=== PATIENT | female | born 1955 | race African-American/Black ===

== ENCOUNTER 2017-03-28 03:12 | Inpatient (IN) ==
--- NOTE | 2017-03-28 04:36 | Emergency Department Note ---
Arrival - Arrival Chief Complaint: Shortness of Breath ED Nursing Triage Note: pt was transfered from [facility] with resp distress. pt has hx chf, copd, sarcoidosis. pt received lasix, solumedrol, hydralazine and labetolol police captain. Mode of Arrival: Stretcher Time Seen by Provider: 03/28/17 03:49 - History of Present Illness HPI Narrative: This is a 61-year-old female of descent with history of hypertension who has been taken off her antihypertensive medications several months ago and who was transferred from [place] because of cardiomegaly and pulmonary vascular congestion seen on chest x-ray with a BNP of over 2000 with dyspnea on exertion orthopnea and worsening shortness of breath. The patient has a history of sarcoidosis but does not have a history of congestive heart failure. The case was discussed with the hospitalist who agreed to admit the patient to the hospital for workup of new onset of congestive heart failure. Date of Last Menstrual Period: hysterectomy Medical,Surgical,& Family Hx - Medical History Cardio: History of: CHF, Hypertension Psychological: History of: Bipolar Disorder Endocrine: History of: Thyroid Disorder Respiratory: History of: COPD, Respiratory Problems (sarcoidosis) - Surgical History Reproductive Surgeries: Surgical HX of;: Hysterectomy - Social History Smoking Status: Former smoker Frequency of Alcohol Use: None Type of Drug Use: None Exam Vital Signs: Vital Signs Temperature 96.7 F L 03/28/17 03:12 Pulse Rate 100 H 03/28/17 03:12 Respiratory Rate 17 03/28/17 03:12 Blood Pressure 138/118 03/28/17 03:12 O2 Sat by Pulse Oximetry 100 03/28/17 03:12 Course Course Narrative: The patient has a history of hypertension who has been taken off her antihypertensive medications several months ago and who was transferred from [place] because of cardiomegaly and pulmonary vascular congestion seen on chest x-ray with a BNP of over 2000 with dyspnea on exertion orthopnea and worsening shortness of breath. The patient has a history of sarcoidosis but does not have a history of congestive heart failure. The case was discussed with the hospitalist who agreed to admit the patient to the hospital for workup of new onset of congestive heart failure. Disposition Clinical Impression: Congestive heart failure, Uncontrolled hypertension Disposition: Still a Patient Additional Instructions: The patient has a history of hypertension who has been taken off her antihypertensive medications several months ago and who was transferred from [place] because of cardiomegaly and pulmonary vascular congestion seen on chest x-ray with a BNP of over 2000 with dyspnea on exertion orthopnea and worsening shortness of breath. The patient has a history of sarcoidosis but does not have a history of congestive heart failure. The case was discussed with the hospitalist who agreed to admit the patient to the hospital for workup of new onset of congestive heart failure.
--- NOTE | 2017-03-28 06:57 | EKG Report ---
Stationary ECG Study [facility] ER Test Date: 03/28/2017 3:25:34 AM Pat Name: TANYA WARD Department: Room: Gender: F Patient Clerical Assistant: PRISCILLA : 1955 Requested by: Mohamud Traylor Order Number: [id number] Reading MD: CLARI BUSTAMANTE Intervals [place] Rate: 94 P: 69 MS: 151 QRS: 0 QRSD: 96 T: 140 QT: 382 QTc: 434 Interpretive Statements SINUS RHYTHM WITH OCCASIONAL VENTRICULAR PREMATURE COMPLEXES POSSIBLE RIGHT ATRIAL ENLARGEMENT MODERATE T-WAVE ABNORMALITY, CONSIDER LATERAL ISCHEMIA Electronically Signed On 03-28-17 16:01:48 CDT by CLARI BUSTAMANTE [email or web address]
--- NOTE | 2017-03-28 08:09 | Hospitalist History & Physical ---
<Cielo Torres - Last Filed: 03/28/17 09:07> Assessment and Plan (1) Sarcoidosis Status: Acute Assessment and plan: Admit as inpatient. Review home meds. Stat CXR. Supplemental O2. breathing treatments. Current Visit: Yes (2) Congestive heart failure Status: Acute Assessment and plan: Telemetry bed. BNP pending. Strict I&Os. Daily weights. IV lasix. Echo pending. Consult cardiology. Current Visit: Yes (3) Uncontrolled hypertension Status: Acute Assessment and plan: Prn iv meds. Continue to monitor. Current Visit: Yes History of Present Illness Chief complaint: shortness of breath History of present illness: Ms. Cisneros is a 61 year old black female with a history of htn, thyroid disorder , chf, sarcoidosis, and hyperlipidemia that presented to the ED via EMS as a transfer from [facility] for further evaluation of shortness of breath. Pt. states that the shortness of breath started about 2 weeks ago but worsened on Wednesday. Pt. states she was seen in the ED in [place] on Wednesday, received a couple of breathing treatments and was released home. She initially felt better but on yesterday it progressively worsened. She went to [facility] today and was transferred over for a higher level of care. Pt. reports a subjective fever over the last couple of weeks, chills, and cough that produces yellow tinged sputum. She also confirms nausea and vomiting. She denies any chest pain , abdominal pain, or any other complaints at this time. Pt. states she is followed by Dr. Rivera in [place] for her sarcoidosis and that her PCP recently retired. She states there have been changes to her medications lately but she has not found a new PCP. Labs from the outside facility have been reviewed. New labs from our facility are pending. Pt's case has been discussed with Dr. Madsen and the patient will be admitted to the hospitalist service for further evaluation and treatment. Home meds have not been received or reconciled at this time. Allergies Allergy/AdvReac Type Severity Reaction Status Date / Time morphine Allergy ITCHING Verified 03/28/17 06:04 Medical,Surgical,& Family Hx - Medical History Cardio: History of: CHF, Hypertension Psychological: History of: Bipolar Disorder Endocrine: History of: Thyroid Disorder Respiratory: History of: COPD, Respiratory Problems (sarcoidosis) - Surgical History Reproductive Surgeries: Surgical HX of;: Hysterectomy - Family History Family History: Reports;: Family Cancer - Social History Smoking Status: Former smoker Frequency of Alcohol Use: None Type of Drug Use: None Marital Status: Single Lives With:: Alone Functional capacity: uses cane/walker 12 point system: reviewed and no additional remarkable complaints except as stated - Constitutional Constitutional: Present: chills, fever(s), weakness. Absent: night sweats - EENT Eyes: Present: loss of vision Ears: Absent: decreased hearing Nose, mouth and throat: Absent: headache(s) - Cardiovascular Cardiovascular: Present: dyspnea on exertion, edema. Absent: chest pain at rest - Respiratory Respiratory: Present: cough (productive), dyspnea - Gastrointestinal Gastrointestinal: Absent: abdominal pain, nausea, vomiting - Genitourinary Genitourinary: Absent: urinary frequency - Musculoskeletal Musculoskeletal: Absent: back pain - Neurological Neurological: Absent: confusion, dizziness - Psychiatric Psychiatric: Absent: confusion - Endocrine Endocrine: Present: heat intolerance - Hematologic/Lymphatic Hematologic/Lymphatic: Absent: easy bleeding Exam - Constitutional Vitals: Period Temp Pulse Resp BP Sys/Garza Pulse Ox Last 24 Hr 96.7 F-96.7 F 100-100 17-17 138-138/118-118 100 General appearance: mild distress, over weight - Head Head exam: Present: normal inspection, normocephalic - Eye Eye exam: Present: EOMI Pupils: Present: BLADIMIR - Neck Neck exam: Present: normal inspection - Respiratory Respiratory exam: Present: clear to auscultation bilaterally. Absent: wheezes - Cardiovascular Cardiovascular exam: Present: tachycardia - GI/Abdominal GI/Abdominal exam: Present: normal bowel sounds, soft. Absent: tenderness - Extremities Exam Extremities exam: Present: normal capillary refill, full ROM, edema - Neurological Exam Neurological exam: Present: alert, oriented X3 - Psychiatric Psychiatric exam: Present: normal affect, normal mood - Skin Skin exam: Present: normal color, warm, dry Results - Labs Labs: Labs from the outside facility have been reviewed. Other labs available in the external facility record under reports. WBC 7.89 Hemoglobin 14.9 Hematocrit 43.9 Na 144 K 3.7 Chl 103 CO2 29 Bun 12 Creatinine 1 Lactic acid 1.6 - EKG EKG results: interpreted by JALEN <Isaac Madsen - Last Filed: 03/28/17 16:46> History of Present Illness History of present illness: Patient seen and examined independently of MENTAL HEALTH ASSISTANT Torres, agree with history, assessment and plan as documented. 61 y/o AAF with sarcoidosis and chf admitted with CHF exacerbation. She reports currently not having a pcp. She was previously followed by a sewer digger in [place] but has not been there in a while. She is followed by a Dr. Rivera in [place] for cataracts and possible glaucoma. She reports being taken off her blood pressure medications and lasix. She does not believe that this was due to her blood pressure being low. She will be admitted to the telemetry floor. Started on IV lasix. Obtain echo. Start procardia. Will start beta ken and ethan inhibitor before discharge. Exam - Constitutional Vitals: Period Temp Pulse Resp BP Sys/Garza Pulse Ox Last 24 Hr 96.7 F-99.1 F 55-113 17-20 138-188/95-118 95-100 Results - Labs CBC & BMP: 03/28/17 09:57 03/28/17 09:57
[2017-03-28] MEDS ORDERED: LABETALOL 20 MG/4 ML SYRINGE IV STA (09:21)
[2017-03-28] MEDS ORDERED: ONDANSETRON 4 MG/2 ML VIAL IV PRN (09:29)
--- NOTE | 2017-03-28 10:10 | XRay Report ---
Portable chest March 28, 2017 at 0924 hours Indication: Shortness of breath Comparison: Same date at 0123 hours Findings: Cardiomediastinal contours are stable with underlying cardiomegaly and again underlying interstitial edema pattern. Bilateral pleural effusions are likely unchanged in the lateral allowing for difference in technique and exclusion of the bilateral costophrenic sulci. Visualized upper abdomen is grossly unremarkable. Impression: Essentially no change in the appearance the chest with underlying interstitial edema pattern and bilateral pleural effusions PROCEDURE INTERPRETED AT [facility] DEPARTMENT OF RADIOLOGY Final Report Signed by: Ajit Mccarthy
[2017-03-28 10:11] LABS: Basophils % 0.2 % (0.0-0.8); Hematocrit 35.3 VOL% (35.7-47.0); Immature Granulocytes % 0.6 %; Immature Granulocytes Absolute 0.03 #; Lymphocytes # 1.1 10*3/uL (1.4-4.0); Lymphocytes % 22.5 % (21.3-54.2); Mean Corpuscular Hemoglobin 28 PG (27-34); Mean Corpuscular Volume 82.3 FL (87-102); Mean Platelet Volume 11.1 FL (9.6-12.0); Monocytes # 0.1 10*3/uL (0.11-0.8); Monocytes % 1.1 % (1.7-12.7); Neutrophils # 3.6 10*3/uL (1.4-7.4); Neutrophils % 75.6 % (38.7-73.9); Platelet Count 426 T/CUMM (130-400); Red Blood Count 4.29 MC/CUMM (3.8-5.5); Red Cell Distribution Width 14.6 % (9.3-17.3); White Blood Count 4.8 T/CUMM (4-12)
[2017-03-28 10:43] LABS: Calcium 9.2 MG/DL (8.5-10.1); Osmolality,Calculated 285.3 MOS/KG (273-304)
[2017-03-28 10:52] LABS: Magnesium 2.2 MG/DL (1.8-2.4); Risk Ratio 3.9; Thyroid Stimulating Hormone 0.426 uIU/ml (0.358-3.74); VLDL CHOLESTEROL 13.2 MG/DL
[2017-03-28] MEDS: ALBUTEROL/IPRATROPIUM 3 ML NEB RESP TX SCH ×4 (11:15→22:50)
[2017-03-28] MEDS ORDERED: CARVEDILOL 6.25 MG TABLET PO SCH (13:00)
--- NOTE | 2017-03-28 13:03 | ECHO Report ---
Fior Cisneros Exam Date: 03/28/2017 11:21 Referring Physician: Technologist: Rachel Prasad Age: 61 Ht (in): 68 Wt (lb): 240 Gender: F Exam Location: [facility] Echo Indications: SOB, HTN, sarcoid, CHF exacerbation BP: 159 / 101 HR: 100 Rhythm: Sinus Technical Quality: Technically difficult study IMPRESSIONS Technically difficult study. EF 40-45 %. Global hypokinesis. Grade II/IV diastolic dysfunction, moderately elevated filling pressures. Normal right ventricular size and systolic function. The right atrium is mildly enlarged. The left atrium is mildly enlarged. Mildly thickened mitral valve. Trace mitral valve regurgitation. Aortic valve sclerosis. No aortic valve regurgitation. [id number]-igbeiasf tricuspid valve regurgitation. PAP 40-45 mmHG. Pulmonic valve not well visualized. No pericardial effusion. Normal aorta. MEASUREMENTS (Male / Female) Normal Values 2D ECHO LV Diastolic Diameter PLAX 4.3 cm 4.2 - 5.9 / 3.9 - 5.3 cm LV Systolic Diameter PLAX 3.8 cm LV Fractional Shortening PLAX 11.5 % IVS Diastolic Thickness 1.7 cm 0.6 - 1.0 / 0.6 - 0.9 cm LVPW Diastolic Thickness 1.6 cm 0.6 - 1.0 / 0.6 - 0.9 cm Aortic Root Diameter 3.0 cm LA Systolic Diameter LX 4.2 cm 3.0 - 4.0 / 2.7 - 3.8 cm FINDINGS Left Ventricle EF 40-45 %. Global hypokinesis. Grade II/IV diastolic dysfunction, moderately elevated filling pressures. Right Ventricle Normal right ventricular size and systolic function. Right Atrium The right atrium is mildly enlarged. Left Atrium The left atrium is mildly enlarged. Mitral Valve Mildly thickened mitral valve. Trace mitral valve regurgitation. Aortic Valve Aortic valve sclerosis. No aortic valve regurgitation. Tricuspid Valve Tricuspid valve not well visualized. Yiqd-ux-jsyoextk tricuspid valve regurgitation. PAP 40-45 mmHG. Pulmonic Valve Pulmonic valve not well visualized. Pericardium No pericardial effusion. Aorta Normal aorta. Balta Cm (Electronically Signed) Final Date: 28 March 2017 13:02
[2017-03-28] MEDS: PANTOPRAZOLE 40 MG TABLET PO SCH (13:56)
[2017-03-28] MEDS: KETOROLAC 0.5% OPH SOLN 3 ML BOTTLE BOTH EYES SCH ×3 (13:57→21:17)
[2017-03-28] MEDS: DORZOLAMIDE 2% OPH SOLN 10 ML BOTTLE BOTH EYES SCH ×3 (13:57→21:18)
[2017-03-28 14:24] LABS: Apearance,Urine Slightly Hazy (Clear); Bacteria,Urine Occasional /HPF (Few); Bilirubin,Urine Negative (Negative); Blood, Urine Moderate mg/dL (Negative); Glucose,Urine (UA) 50 mg/dL (Negative); Ketones,Urine Negative (Negative); Mucus,Urine Few /LPF (Occasional); Nitrite,Urine Negative (Negative); Protein,Urine >=500 MG/DL; RBC,Urine 56 /HPF (0-4); Squamous Epithelial Cell,Urine Occasional /HPF (0-10); Urine Color Yellow (Yellow); Urine Urobilinogen < 2.0 EU/DL (0.2-1.0); WBC,Urine 9 /HPF (0-6)
[2017-03-28] MEDS: FUROSEMIDE 40 MG/4 ML VIAL IV SCH (15:36)
[2017-03-28] MEDS: rOPINIRole 1 MG TABLET PO SCH (21:19)
[2017-03-28] MEDS: ZALEPLON 5 MG CAPSULE PO SCH (21:19)
[2017-03-28] MEDS: QUEtiapine XR 50 MG TABLET PO SCH (21:20)
[2017-03-28] MEDS: ATORVASTATIN 20 MG TABLET PO SCH (21:22)
[2017-03-29] MEDS: ALBUTEROL/IPRATROPIUM 3 ML NEB RESP TX SCH ×5 (02:31→19:26)
[2017-03-29 05:15] LABS: Basophils % 0.5 % (0.0-0.8); Eosinophils % 0.3 % (0.00-10.9); Hematocrit 35.4 VOL% (35.7-47.0); Immature Granulocytes % 0.3 %; Immature Granulocytes Absolute 0.02 #; Lymphocytes % 45.5 % (21.3-54.2); Mean Corpuscular HGB Conc 33.9 GM/DL (32-36); Mean Corpuscular Hemoglobin 28 PG (27-34); Mean Corpuscular Volume 82.5 FL (87-102); Mean Platelet Volume 11.7 FL (9.6-12.0); Monocytes # 0.5 10*3/uL (0.11-0.8); Monocytes % 8.2 % (1.7-12.7); Neutrophils # 2.9 10*3/uL (1.4-7.4); Neutrophils % 45.2 % (38.7-73.9); Platelet Count 322 T/CUMM (130-400); Red Blood Count 4.29 MC/CUMM (3.8-5.5); Red Cell Distribution Width 14.6 % (9.3-17.3); White Blood Count 6.5 T/CUMM (4-12)
[2017-03-29 05:43] LABS: Calcium 8.7 MG/DL (8.5-10.1); Magnesium 1.9 MG/DL (1.8-2.4); Osmolality,Calculated 282.4 MOS/KG (273-304); Potassium 3.5 MMOL/L (3.5-5.1)
[2017-03-29] MEDS: buPROPion XL 150 MG TABLET PO SCH (08:39)
[2017-03-29] MEDS: FUROSEMIDE 40 MG/4 ML VIAL IV SCH ×2 (08:39→15:47)
[2017-03-29] MEDS: PANTOPRAZOLE 40 MG TABLET PO SCH (08:39)
[2017-03-29] MEDS: methylPREDNISolone 4 MG TABLET PO SCH (08:39)
[2017-03-29] MEDS: KETOROLAC 0.5% OPH SOLN 3 ML BOTTLE BOTH EYES SCH ×4 (08:40→22:08)
[2017-03-29] MEDS: DORZOLAMIDE 2% OPH SOLN 10 ML BOTTLE BOTH EYES SCH ×4 (08:40→22:08)
--- NOTE | 2017-03-29 11:55 | Hospitalist Progress Note ---
Assessment and Plan (1) Congestive heart failure Status: Acute Assessment and plan: EF 40-45 Continue IV lasix Repeat CXR today and in am Patient with sob, most likely related to chf, but given her poor ambulation will order VQ scan to rule out a PE Current Visit: Yes (2) Uncontrolled hypertension Status: Acute Assessment and plan: Continue procardia Will need to be started on beta ken and ethan inhibitor, hopefully before discharge. Monitoring creatinine Current Visit: Yes (3) Sarcoidosis Status: Acute Current Visit: Yes Hospitalist: Subjective Interval history: No acute events overnight. Patient reports that she feels better today, still has some sob. Exam - Constitutional Vitals: Period Temp Pulse Resp BP Sys/Garza Pulse Ox Last 24 Hr 97.0 F-99.1 F 55-113 18-20 139-187/83-106 95-99 General appearance: over weight - Head Head exam: Present: normocephalic, atraumatic - Eye Eye exam: Present: EOMI Pupils: Present: BLADIMIR - ENT ENT exam: Present: normal exam - Neck Neck exam: Present: normal inspection - Respiratory Respiratory exam: Present: clear to auscultation bilaterally. Absent: rhonchi, wheezes - Cardiovascular Cardiovascular exam: Present: regular rate and rhythm - GI/Abdominal GI/Abdominal exam: Present: normal bowel sounds, soft. Absent: tenderness, rebound - Extremities Exam Extremities exam: Present: normal inspection - Back Exam Back exam: Present: normal inspection - Neurological Exam Neurological exam: Present: alert, oriented X3 - Psychiatric Psychiatric exam: Present: normal affect, normal mood - Skin Skin exam: Present: warm, intact Results - Labs CBC & BMP: 03/29/17 04:41 03/29/17 04:41
--- NOTE | 2017-03-29 13:08 | XRay Report ---
Portable chest March 29, 2017 at 1212 hours Indication: Shortness of breath Comparison images performed March 28, 2017 Findings: Cardiomediastinal contours are stable with underlying cardiomegaly. Slight improvement in the overall interstitial edema pattern. Stable bibasilar atelectasis and effusions. No acute osseous abnormalities. Impression: Slight improvement in the interstitial edema pattern with no change in the bibasilar pleural and parenchymal opacities PROCEDURE INTERPRETED AT [facility] DEPARTMENT OF RADIOLOGY Final Report Signed by: Ajit Mccarthy
[2017-03-29] MEDS: BECLOMETHASONE 80 MCG/PUFF INHALER 8.7 GM INH SCH (14:07)
[2017-03-29] MEDS: hydrALAZINE 20 MG/1 ML VIAL IV PRN (17:27)
--- NOTE | 2017-03-29 17:55 | Nuclear Medicine Report ---
Ventilation perfusion scan March 29, 2017 Indication: Difficulty breathing Comparison: No relevant comparisons Correlation with: Chest x-ray performed on same date at 1209 hours. Radiopharmaceutical: 40 mCi of Tc 99m DTPA aerosol for the ventilation study and 5 mCi Tc 99m MAA for the perfusion study. Technique: Following inhalation of the aerosolized radiopharmaceutical, the ventilation study was performed with images of the thorax being obtained in 8 projections. Thereafter, the perfusion study was performed following the injection of radiolabeled MAA particles with images of the thorax again obtained in 8 projections. Findings: Study is of adequate diagnostic value. No matched or mismatched segmental or larger pulmonary perfusion/ventilation defect is demonstrated. IMPRESSION: No perfusion/ventilation disassociation to suggest a pulmonary embolism. Low probability of pulmonary embolism. PROCEDURE INTERPRETED AT [facility] DEPARTMENT OF RADIOLOGY Final Report Signed by: Ajit Mccarthy
[2017-03-29] MEDS: ATORVASTATIN 20 MG TABLET PO SCH (20:32)
[2017-03-29] MEDS: ZALEPLON 5 MG CAPSULE PO SCH (20:32)
[2017-03-29] MEDS: QUEtiapine XR 50 MG TABLET PO SCH (20:32)
[2017-03-29] MEDS: rOPINIRole 1 MG TABLET PO SCH (20:32)
[2017-03-29] MEDS: ACETAMINOPHEN 325 MG TABLET PO PRN (22:21)
[2017-03-30] MEDS: ALBUTEROL/IPRATROPIUM 3 ML NEB RESP TX SCH ×7 (00:02→23:10)
[2017-03-30 05:44] LABS: Basophils # 0.1 10*3/uL (0.0-0.2); Eosinophils # 0.1 10*3/uL (0.0-0.87); Hematocrit 36.9 VOL% (35.7-47.0); Hemoglobin 12.6 GM/DL (12.0-16.0); Immature Granulocytes % 0.3 %; Immature Granulocytes Absolute 0.02 #; Lymphocytes # 3.2 10*3/uL (1.4-4.0); Lymphocytes % 44.6 % (21.3-54.2); Mean Corpuscular HGB Conc 34.1 GM/DL (32-36); Mean Corpuscular Hemoglobin 28 PG (27-34); Mean Platelet Volume 11.3 FL (9.6-12.0); Monocytes # 0.7 10*3/uL (0.11-0.8); Monocytes % 9.4 % (1.7-12.7); Neutrophils # 3.2 10*3/uL (1.4-7.4); Neutrophils % 43.7 % (38.7-73.9); Platelet Count 390 T/CUMM (130-400); Red Cell Distribution Width 14.4 % (9.3-17.3); White Blood Count 7.3 T/CUMM (4-12)
[2017-03-30 06:21] LABS: Calcium 8.8 MG/DL (8.5-10.1); Osmolality,Calculated 281.5 MOS/KG (273-304); Potassium 3.6 MMOL/L (3.5-5.1)
--- NOTE | 2017-03-30 08:06 | XRay Report ---
Portable chest March 30, 2017 0548 hours Indication: Difficulty breathing Comparison images from previous day 1212 hours Findings: Stable cardiomegaly. Slight residual central interstitial prominence. Small bilateral pleural effusions with bibasilar atelectasis, likely demonstrating some degree of improvement. No acute osseous abnormalities. Impression: Continued improvement in the interstitial edema pattern and small bilateral effusions PROCEDURE INTERPRETED AT [facility] DEPARTMENT OF RADIOLOGY Final Report Signed by: Ajit Mccarthy
[2017-03-30] MEDS: PANTOPRAZOLE 40 MG TABLET PO SCH (08:26)
[2017-03-30] MEDS: buPROPion XL 150 MG TABLET PO SCH (08:26)
[2017-03-30] MEDS: methylPREDNISolone 4 MG TABLET PO SCH (08:26)
[2017-03-30] MEDS: KETOROLAC 0.5% OPH SOLN 3 ML BOTTLE BOTH EYES SCH ×4 (08:27→21:53)
[2017-03-30] MEDS: BECLOMETHASONE 80 MCG/PUFF INHALER 8.7 GM INH SCH (08:27)
[2017-03-30] MEDS: DORZOLAMIDE 2% OPH SOLN 10 ML BOTTLE BOTH EYES SCH ×4 (08:27→21:55)
[2017-03-30] MEDS: FUROSEMIDE 40 MG/4 ML VIAL IV SCH ×2 (08:27→15:36)
[2017-03-30] MEDS: hydrALAZINE 20 MG/1 ML VIAL IV PRN (13:10)
--- NOTE | 2017-03-30 15:11 | Hospitalist Progress Note ---
Assessment and Plan (1) Congestive heart failure Status: Acute Assessment and plan: The patient is admitted to the hospital with acute on chronic diastolic congestive heart failure. The patient is improving with intravenous diuresis. I anticipate that she will be ready for discharge home tomorrow or the following day. We will recheck electrolytes and brain natruretic peptide in the morning. Current Visit: Yes Qualifiers: Congestive heart failure type: diastolic Congestive heart failure chronicity: acute on chronic Qualified Code(s): I50.33 - Acute on chronic diastolic (congestive) heart failure (2) Uncontrolled hypertension Status: Acute Current Visit: Yes (3) Sarcoidosis Status: Acute Current Visit: Yes Hospitalist: Subjective Interval history: Mrs. Cisneros has less shortness of breath than when she arrived but is still more short of breath than she is at baseline. Her chest x-ray and symptoms are improving with intravenous diuresis. Echocardiogram reveals ejection fraction of 40%. The patient denies angina or palpitations. Exam - Constitutional Vitals: Period Temp Pulse Resp BP Sys/Garza Pulse Ox Last 24 Hr 97.4 F-98.9 F 67-119 16-20 107-190/56-107 90-99 Exam: Constitutional System: Mild distress. No tremulousness. Head: Normocephalic, atraumatic. Ears, Nose and Throat System: No evidence of Otitis or Mastoiditis. No epistaxis or discharge Eyes System: Pupils equal, round, and reactive. Extraocular muscles intact. Neck: Supple, without adenopathy, No jugular venous distention. No thyromegaly , neck mass, or prior surgery apparent. Respiratory System: Chest few rales in left base to auscultation. Cardiovascular System: Heart with regular rate and rhythm. No murmur. GI System: Abdomen soft, nontender. Normo active bowel sounds present. Musculoskeletal System: limbs with trace pedal edema. Full distal pulses. Neurological System: No discernable sensory deficit. No aphasia Psychiatric System: Conversation is rational Results - Labs CBC & BMP: 03/30/17 04:29 03/30/17 04:29 Lab Results: I have reviewed the past 24 hour labs
[2017-03-30] MEDS: ACETAMINOPHEN 325 MG TABLET PO PRN (18:10)
[2017-03-30] MEDS: rOPINIRole 1 MG TABLET PO SCH (21:55)
[2017-03-30] MEDS: ATORVASTATIN 20 MG TABLET PO SCH (21:55)
[2017-03-30] MEDS: QUEtiapine XR 50 MG TABLET PO SCH (21:55)
[2017-03-30] MEDS: ZALEPLON 5 MG CAPSULE PO SCH (21:55)
[2017-03-31] MEDS: ALBUTEROL/IPRATROPIUM 3 ML NEB RESP TX SCH ×6 (02:09→23:45)
[2017-03-31 06:07] LABS: Calcium 9.2 MG/DL (8.5-10.1); Potassium 3.1 MMOL/L (3.5-5.1)
[2017-03-31] MEDS: buPROPion XL 150 MG TABLET PO SCH (10:24)
[2017-03-31] MEDS: PANTOPRAZOLE 40 MG TABLET PO SCH (10:24)
[2017-03-31] MEDS: methylPREDNISolone 4 MG TABLET PO SCH (10:24)
[2017-03-31] MEDS: BECLOMETHASONE 80 MCG/PUFF INHALER 8.7 GM INH SCH (10:25)
[2017-03-31] MEDS: FUROSEMIDE 40 MG/4 ML VIAL IV SCH (10:25)
[2017-03-31] MEDS: KETOROLAC 0.5% OPH SOLN 3 ML BOTTLE BOTH EYES SCH ×4 (10:25→21:01)
[2017-03-31] MEDS: DORZOLAMIDE 2% OPH SOLN 10 ML BOTTLE BOTH EYES SCH ×4 (10:26→21:00)
--- NOTE | 2017-03-31 13:56 | Hospitalist Progress Note ---
Assessment and Plan (1) Congestive heart failure Status: Acute Assessment and plan: The patient is admitted to the hospital with acute on chronic diastolic congestive heart failure. The patient is improving with intravenous diuresis. The patient will transition to oral diuresis now. We will replete potassium and recheck BMP in the morning. I anticipate discharge home tomorrow. Current Visit: Yes Qualifiers: Congestive heart failure type: diastolic Congestive heart failure chronicity: acute on chronic Qualified Code(s): I50.33 - Acute on chronic diastolic (congestive) heart failure (2) Uncontrolled hypertension Status: Acute Current Visit: Yes (3) Sarcoidosis Status: Acute Current Visit: Yes Hospitalist: Subjective Interval history: The patient is resting comfortably on floor today. Shortness of breath has improved but potassium is low. We will replete potassium today and anticipate discharge home tomorrow. Exam - Constitutional Vitals: Period Temp Pulse Resp BP Sys/Garza Pulse Ox Last 24 Hr 96.8 F-97.9 F 96-111 16-20 125-175/72-86 96-100 Exam: Constitutional System: Mild distress. No tremulousness. Head: Normocephalic, atraumatic. Ears, Nose and Throat System: No evidence of Otitis or Mastoiditis. No epistaxis or discharge Eyes System: Pupils equal, round, and reactive. Extraocular muscles intact. Neck: Supple, without adenopathy, No jugular venous distention. No thyromegaly , neck mass, or prior surgery apparent. Respiratory System: Chest few rales in left base to auscultation. Cardiovascular System: Heart with regular rate and rhythm. No murmur. GI System: Abdomen soft, nontender. Normo active bowel sounds present. Musculoskeletal System: limbs with trace pedal edema. Full distal pulses. Neurological System: No discernable sensory deficit. No aphasia Psychiatric System: Conversation is rational Results - Labs CBC & BMP: 03/30/17 04:29 03/31/17 04:28 Lab Results: I have reviewed the past 24 hour labs
[2017-03-31] MEDS: POTASSIUM CHLORIDE 20 MEQ TABLET PO SCH ×3 (14:35→22:01)
[2017-03-31] MEDS: FUROSEMIDE 40 MG TABLET PO SCH (17:46)
[2017-03-31] MEDS: QUEtiapine XR 50 MG TABLET PO SCH (20:58)
[2017-03-31] MEDS: rOPINIRole 1 MG TABLET PO SCH (20:59)
[2017-03-31] MEDS: ZALEPLON 5 MG CAPSULE PO SCH (20:59)
[2017-03-31] MEDS: ATORVASTATIN 20 MG TABLET PO SCH (20:59)
[2017-04-01] MEDS: POTASSIUM CHLORIDE 20 MEQ TABLET PO SCH ×2 (02:15→05:55)
[2017-04-01] MEDS: ALBUTEROL/IPRATROPIUM 3 ML NEB RESP TX SCH ×2 (04:17→07:48)
[2017-04-01 05:52] LABS: Calcium 8.8 MG/DL (8.5-10.1); Osmolality,Calculated 278.7 MOS/KG (273-304); Potassium 3.5 MMOL/L (3.5-5.1)
[2017-04-01 08:31] VITALS: BP 139/72
[2017-04-01] MEDS: buPROPion XL 150 MG TABLET PO SCH (08:40)
[2017-04-01] MEDS: FUROSEMIDE 40 MG TABLET PO SCH (08:40)
[2017-04-01] MEDS: methylPREDNISolone 4 MG TABLET PO SCH (08:40)
[2017-04-01] MEDS: PANTOPRAZOLE 40 MG TABLET PO SCH (08:41)
[2017-04-01] MEDS: KETOROLAC 0.5% OPH SOLN 3 ML BOTTLE BOTH EYES SCH (08:42)
[2017-04-01] MEDS: DORZOLAMIDE 2% OPH SOLN 10 ML BOTTLE BOTH EYES SCH (08:43)
[2017-04-01] MEDS: BECLOMETHASONE 80 MCG/PUFF INHALER 8.7 GM INH SCH (08:43)
--- NOTE | 2017-04-01 09:30 | Hospitalist Progress Note ---
Assessment and Plan (1) Congestive heart failure Status: Acute Assessment and plan: The patient is admitted to the hospital with acute on chronic diastolic congestive heart failure. The patient is improving with intravenous diuresis. The patient will transition to oral diuresis now. We will replete potassium and recheck BMP in the morning. I anticipate discharge home tomorrow. Current Visit: Yes Qualifiers: Congestive heart failure type: diastolic Congestive heart failure chronicity: acute on chronic Qualified Code(s): I50.33 - Acute on chronic diastolic (congestive) heart failure (2) Uncontrolled hypertension Status: Acute Current Visit: Yes (3) Sarcoidosis Status: Acute Current Visit: Yes Hospitalist: Subjective Interval history: The patient is admitted to the hospital with shortness of breath and pulmonary edema. She was diagnosed with systolic congestive heart failure with echo showing ejection fraction of 40%. The patient had intravenous Lasix diuresis twice daily until volume overload was resolved. We then restarted her Lasix and repleted her electrolytes. The patient is much improved and is now ready for discharge home and follow-up with Dr. Castellano in [place]. On the date of discharge, chest is clear, heart has regular rate and rhythm, and abdomen soft. Patient medications were reconciled upon admission, and again at the time of discharge. The patient was screened for tobacco use and found to be a occasional smoker. The patient was given 4 minutes of tobacco avoidance education. The patient's medical decsion maker is themself, and when asked, they asked to be Full code. Discharge Time was 36 minutes, including final examination, evaluation and planning, education, reconciliation of medications, writing prescriptions, coordinating care with mattress spring encaser, and preparing discharge documentation. Exam - Constitutional Vitals: Period Temp Pulse Resp BP Sys/Garza Pulse Ox Last 24 Hr 96.4 F-99.2 F 86-111 15-20 114-147/52-98 94-98 Results - Labs CBC & BMP: 03/30/17 04:29 04/01/17 04:55
--- NOTE | 2017-04-01 09:34 | Discharge Summary ---
Hospital Course - Hospital Course Hospital Course: The patient is admitted to the hospital with shortness of breath and pulmonary edema. She was diagnosed with acute on chronic diastolic congestive heart failure with echo showing ejection fraction of 40%. The patient had intravenous Lasix diuresis twice daily until volume overload was resolved. We then restarted her Lasix and repleted her electrolytes. The patient is much improved and is now ready for discharge home and follow-up with Dr. Castellano in [place]. On the date of discharge, chest is clear, heart has regular rate and rhythm, and abdomen soft. Patient medications were reconciled upon admission, and again at the time of discharge. The patient was screened for tobacco use and found to be a occasional smoker. The patient was given 4 minutes of tobacco avoidance education. The patient's medical decsion maker is themself, and when asked, they asked to be Full code. Discharge Time was 36 minutes, including final examination, evaluation and planning, education, reconciliation of medications, writing prescriptions, coordinating care with case management assistant, and preparing discharge documentation. - Time spent with patient Time with patient DS: Greater than 30 minutes Diagnosis - Discharge Diagnosis (1) Congestive heart failure Status: Resolved (2) Uncontrolled hypertension Status: Chronic (3) Sarcoidosis Status: Chronic Discharge Plan - Discharge Data Disposition: Disch To Home/Self Care Condition at Discharge: Stable Discharge Diet: heart healthy Activity: resume usual activities as tolerated - Discharge Medications New Atorvastatin [Lipitor] 20 mg PO BEDTIME #60 tablet Furosemide Tab [Lasix Tab] 60 mg PO BID DIURETIC #120 tablet NIFEdipine XL TAB [Procardia Xl] 30 mg PO DAILY #60 tablet Acetaminophen Tab [Tylenol Tab] 650 mg PO Q4H PRN tablet PRN Reason: Fever, Headache, Mild Pain Continue QUEtiapine XR [SEROquel XR] 300 mg PO BEDTIME methylPREDNISolone [Methylprednisolone] 4 mg PO DAILY buPROPion XL [Wellbutrin Xl] 450 mg PO DAILY Dorzolamide 2% Oph Soln [Trusopt 2% Oph Soln] 1 drop BOTH EYES QID Ketorolac 0.5% Oph Soln [Acular 0.5% Oph Soln] 1 drop BOTH EYES QID rOPINIRole [Requip] 1 mg PO BEDTIME Eszopiclone [Lunesta] 2 mg PO BEDTIME Beclomethasone 80 Mcg Inhaler [Qvar 80 Mcg] 80 mcg INH DAILY Potassium Chloride 20 meq PO QID #120 - Follow Up or Referral Follow Up: Erika Castillo MD [Physician] - 2 Weeks - Forms/Instructions Exam - Constitutional Vitals: Period Temp Pulse Resp BP Sys/Garza Pulse Ox Last 24 Hr 96.4 F-99.2 F 86-111 15-20 114-147/52-98 94-98 Discharge Results Labs on day of discharge: Labs from last 24 hours 04/01/17 04:55 Sodium 138 Potassium 3.5 Chloride 100 Carbon Dioxide 31 Anion Gap 10.5 BUN 22 H Creatinine 1.20 H GFR Calculation 52 BUN/Creatinine Ratio 18.00 Glucose 116 H Calculated Osmolality 278.7 Calcium 8.8 Magnesium 2.0 DS: Provider Date of admission: 03/28/17 07:35 Primary care physician: . No PCP Attending physician on admission: Isaac Madsen MD Discharging clinician: Luciano Calles MD
== END 2017-04-01 13:17 | disposition home or self-care (01) | DRG 293 ==
LOC: EDBD → EDUNIT# → N.ED 03:12 → N.EDINP 07:35 → SUATTDRO 07:35 → N.EDINP 09:07 → N.TELES 09:27
PROVIDERS: ADMIT Internal Medicine; ATTEND Internal Medicine